=== PATIENT | female | born 1965 | race Caucasian/White ===

== ENCOUNTER 2020-11-12 15:17 | Emergency (ER) | payer OTHER, SELFPAY ==
[2020-11-12 15:18] VITALS: BP 127/103; PULSE 103; PULSE 104; RESP 16; RESP 18; TEMP 36.3; O2SAT 93; BMI 19.5
[2020-11-12 15:42] VITALS: O2SAT 93
--- NOTE | 2020-11-12 16:30 | RAD_ITS ---
STUDY: X-RAY CHEST REASON FOR EXAM: Female, 55 years old. Cough, SOB TECHNIQUE: AP COMPARISON: None. FINDINGS: The lungs are clear but hyper expanded. There is no demonstrated pleural abnormality. Normal size heart. Normal mediastinum and [place]. Normal visualized pulmonary arteries. Normal visualized aortic arch and descending thoracic aorta. Normal visualized thoracic spine. Normal visualized ribs, clavicles, and shoulders. There is no demonstrated abnormality of the visualized soft tissue structures of the upper abdomen. RAD/Chest 1 View (Portable) IMPRESSION: No airspace consolidation or pleural effusion. Hyperinflation. Electronically Signed: Guille Carter MD ([place]) at 16:49 EDT , Service support ,
--- NOTE | 2020-11-12 16:39 | EX.ED.DYSGE1 ---
HPI History of Present Illness Chief Complaint: Cold Sx Informant: patient Narrative Narrative: Patient is a 55-year-old female who presents to the emergency department for cough, rhinorrhea, sore throat and shortness of breath. Her symptoms have been present over the past 4 days. She initially went to urgent care who did not prescribe her anything or do any imaging. She feels like her symptoms have been getting worse. She is been coughing up yellow sputum. She has been having nasal discharge that is yellow. She has not been vaccinated for Covid. No known sick exposures. She denies having a fever but has been feeling generally weak all over. She has had some chest tightness. No chest pain. No abdominal pain or nausea/vomiting/diarrhea. No rashes. No headache or stiff neck. Patient is a current everyday smoker. No known heart or lung problems. PFSH PFS Home Medications azithromycin See Rx Instructions .ROUTE .COMPLEX #6 tab 11/12/20 [Rx Last Taken Unknown] multivitamin 1 tab PO DAILY 11/12/20 [History Last Taken Unknown] norethindrone (contraceptive) 0.35 mg PO DAILY 11/12/20 [History Last Taken Unknown] prednisone 40 mg PO DAILY 4 Days #8 tab 11/12/20 [Rx Last Taken Unknown] Allergy/AdvReac Type Severity Reaction Status Date / Time ondansetron [From Zofran] AdvReac Other Verified 11/12/20 15:24 WASP Allergy Shortness Uncoded 11/12/20 15:24 of breath Social History Smoking Status: Smoker, status unknown tobacco type: cigarettes ROS ROS ED Constitutional Constitutional ED: Denies chills or fever(s) Eyes Eyes: Denies change in vision ENT ENT ED: Reports rhinorrhea; Denies epistaxis Cardiovascular Cardiovascular: Denies chest pain or palpitations Respiratory/Chest Respiratory/Chest: Reports cough and dyspnea Gastrointestinal Gastrointestinal: Denies abdominal pain, diarrhea, nausea or vomiting Genitourinary Genitourinary ED: Denies dysuria, hematuria or urinary frequency Musculoskeletal Musculoskeletal: Denies back pain or neck pain Integumentary Denies rash Neurologic Neurologic: Denies dizziness, headache(s) or weakness EXAM Physical Exam Const Vital Signs: 11/12/20 15:18 11/12/20 15:42 11/12/20 17:58 Temperature 97.3 F L Temperature Source Temporal Pulse Rate 104 H 93 Respiratory Rate 18 16 Respiratory Effort Short of Breath Respiratory Depth Normal Respiratory Pattern Normal Blood Pressure 127/103 H 108/62 Blood Pressure Mean 111 77 Pulse Ox 93 98 Oxygen Delivery Method Room Air Room Air Room Air Positive well nourished and well developed General Appearance ED: well developed and NAD HEENT Reports normocephalic, head/scalp atraumatic and moist mucous membranes Eyes PERRL and EOMs intact bilaterally Neck no lymphadenopathy and supple General: Negative for tenderness Chest Wall inspection of chest normal Resp normal respiratory effort and clear to auscultation bilaterally Resp Narrative: Minimal expiratory wheezes Auscultation: Negative for rales or rhonchi Cardio regular rate, regular rhythm and no murmurs GI normal to inspection, nondistended, normoactive bowel sounds and non-tender Palpation: soft; Negative for guarding or rebound tenderness present Extremity normal to inspection General Extremety ED: Negative for edema or tenderness General Extremity: Negative for edema Neuro oriented x3, CN's II-XII intact bilaterally and no sensory deficits noted Sensorium / Orientation: alert Motor Exam: strength 5/5 throughout Psych mental status grossly normal Skin no rashes or lesions noted MDM MDM MDM Narrative Medical decision making narrative: Patient presents to the ED for rhinorrhea, sore throat, productive cough. Upon arrival to the ED she is satting 93% on room air. No respiratory distress. She does have a smoking history. Will check x-ray as well as Covid swab. Patient's chest x-ray interpreted by myself. It did not reveal acute cardiopulmonary abnormality. No consolidation, pleural effusions, ureters radiologist interpretation. Patient's Covid test was negative. She is satting well on reexamination. We will treat this as a upper respiratory infection. Given the fact she is a smoker with some hyperinflation seen on x-ray we will treat this as a COPD exacerbation with steroids and azithromycin. She is to follow-up with her PCP. Patient requesting work excuse and will be provided 1. Return precautions are reviewed. She understands and is agreeable this plan. All questions were answered. Radiography Diagnostic Testing: Radiology Impression Chest X-Ray 11/12/20 16:30 IMPRESSION: No airspace consolidation or pleural effusion. Hyperinflation. Electronically Signed: Guille Carter MD ([place]) at 16:49 EDT , Service support , Discharge Plan Triage Chief Complaint: Cold Sx ED Provider: Rome Winston Dx/Rx/DC Orders Clinical Impression: Cough Instructions: ED Upper Resp Infec Abx Tx Prescriptions: New prednisone 20 mg tablet 40 mg PO DAILY 4 Days Qty: 8 RF: 0 azithromycin 250 mg tablet See Rx Instructions .ROUTE .COMPLEX Qty: 6 RF: 0 No Action multivitamin Tablet 1 tab PO DAILY RF: 0 norethindrone (contraceptive) 0.35 mg tablet 0.35 mg PO DAILY RF: 0 Stand Alone Forms: ED Work / School Excuse Primary Care Provider: Tanja Mcpherson Referrals: Tanja Mcpherson MD [Primary Care Provider] - 3-5 Days Disposition Disposition: Home, Self Care Discharge Date/Time: 11/12/20 18:17
[2020-11-12 17:58] VITALS: BP 108/62; PULSE 93; RESP 16; O2SAT 98
== END 2020-11-12 18:17 | disposition home or self-care (01) ==
PROVIDERS: Emergency Provider Emergency Medicine; PCP Internal Medicine
DX: R05 Cough (principal); F17.210 Nicotine dependence, cigarettes, uncomplicated
CPT/HCPCS: 71045; 87426; 99282

== ENCOUNTER → 2023-01-14 | Outpatient (CLI) | payer BC, SELFPAY | END | disposition home or self-care (01) | PROVIDERS: PCP Internal Medicine; Referring Provider Otolaryngology; Visit Provider Otolaryngology | DX: J02.9 Acute pharyngitis, unspecified (principal) | CPT/HCPCS: 87070; 87077 ==

== ENCOUNTER → 2023-01-29 | Outpatient (CLI) | payer BC, SELFPAY | END | disposition home or self-care (01) | LOC: LABSPEC 16:11 | PROVIDERS: PCP Internal Medicine; Referring Provider Otolaryngology; Visit Provider Otolaryngology | DX: J02.9 Acute pharyngitis, unspecified (principal) | CPT/HCPCS: 87070; 87077 ==

== ENCOUNTER → 2023-02-21 | Outpatient (CLI) | payer BC, SELFPAY | END | disposition home or self-care (01) | LOC: LABSPEC 15:18 | PROVIDERS: PCP Internal Medicine; Referring Provider Otolaryngology; Visit Provider Otolaryngology | DX: J02.9 Acute pharyngitis, unspecified (principal) | CPT/HCPCS: 87070 ==